=== PATIENT | male | born 1975 | race Hispanic/Latino ===

== ENCOUNTER 2017-01-01 19:11 | Inpatient (IN) | payer MEDICAID, OTHER ==
[2017-01-01 19:11] VITALS: BMI 24.4
[2017-01-01 20:10] LABS: RBC URINE < 1 /hpf (0-3); URINE BILIRUBIN NEGATIVE (NEGATIVE); URINE BLOOD NEGATIVE (NEGATIVE); URINE COLOR Yellow (YELLOW); URINE GLUCOSE (UA) NORMAL (Normal); URINE KETONE TRACE mg/dL (NEGATIVE); URINE LEUKOCYTE ESTERASE NEG Leu/uL (Negative); URINE PROTEIN NEGATIVE (NEGATIVE); WBC URINE 1 /hpf (0-5)
[2017-01-01 20:13] LABS: BASO % 0.3 % (0.0-2.0); EOS # 0.1 K/uL (0.0-0.7); HEMATOCRIT 44.7 % (35.0-51.0); LYMPH # 1.6 K/uL (1.0-4.3); LYMPH % 14.6 % (20.0-40.0); MEAN CELL VOLUME 86.1 fL (80.0-94.0); MEAN CORPUSCULAR HGB CONC 33.7 g/dL (33.0-37.0); MEAN PLATELET VOLUME 8.4 fL (7.2-11.7); MONO # 0.8 K/uL (0.0-0.8); MONO % 7.4 % (0.0-10.0); RED CELL DISTRIBUTION WIDTH 12.7 % (11.5-14.5); WHITE BLOOD COUNT 11.1 K/uL (4.8-10.8)
[2017-01-01 20:19] LABS: ALB/GLOB RATIO 1.1 (1.0-2.1); ALCOHOL SERUM < 10 mg/dl (0-10); ALKALINE PHOSPHATASE 59 U/L (38-126); ALT/SGPT 47 U/L (21-72); AST/SGOT 44 U/L (17-59); BILIRUBIN,TOTAL 0.7 mg/dL (0.2-1.3); BLOOD UREA NITROGEN 13 mg/dL (9-20); CALCIUM 9.6 mg/dl (8.6-10.4); CARBON DIOXIDE 29 mmol/L (22-30); CHLORIDE 102 mmol/L (98-107); GFR AFRICAN-AMERICAN > 60; GLUCOSE,RANDOM 95 mg/dL (75-110); POTASSIUM 4.8 mmol/L (3.6-5.2); SODIUM 143 mmol/L (132-148); TOTAL PROTEIN 7.6 g/dL (6.3-8.3)
--- NOTE | 2017-01-01 20:38 | C.PDOC ---
History Of Present Illness 41 yo male presents to the ED with complaints of hearing voices urging him to commit suicide. Patient reports feeling depressed and has plan to slice wrists. He denies any physical complaints. Time Seen by Provider: 01/01/17 19:27 Chief Complaint (Nursing): Psychiatric Evaluation History Per: Patient History/Exam Limitations: no limitations Onset/Duration Of Symptoms: Days Current Symptoms Are (Timing): Still Present Suicide/Self Injury Attempted (Context): None Modifying Factor(s): Narcotics, Cocaine Severity: Moderate Associated Symptoms: Depression, Other (plans on cutting wrists. 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 Cardiovascular: Negative for: Chest Pain, Palpitations Respiratory: Negative for: Cough, Shortness of Breath Gastrointestinal: Negative for: Nausea, Vomiting, Abdominal Pain, Diarrhea Psych: Positive for: Depression, Suicidal ideation Physical Exam - Physical Exam Appears: Well, Non-toxic, Other (Flat affect, Comfortable, Awake, Alert) Skin: Normal Color, Warm, Dry Head: Atraumatic, Normacephalic Eye(s): bilateral: Normal Inspection Oral Mucosa: Moist Cardiovascular: Rhythm Regular Respiratory: Normal Breath Sounds, No Rales, No Rhonchi, No Wheezing Gastrointestinal/Abdominal: Normal Exam, Bowel Sounds, Soft, No Tenderness Extremity: Normal ROM Extremity: Bilateral: Atraumatic, Normal Color And Temperature, Normal ROM Neurological/Psych: Oriented x3 ED Course And Treatment - Laboratory Results Result Diagrams: 01/01/17 20:04 01/01/17 20:04 O2 Sat by Pulse Oximetry: 98 (Room Air) Pulse Ox Interpretation: Normal Progress Note: Blood work, UA, UDS ordered and reviewe. Patient to be seen by crisis counselor. 9:10pm- Patient medically cleared. Accepted for psychiatric admission by Dr. Brennan. Disposition - Disposition Disposition: HOSPITALIZED Disposition Time: 21:18 Condition: STABLE - Clinical Impression Clinical Impression: Bipolar disorder, Depression - Scribe Statement The provider has reviewed the documentation as recorded by the Scribe Maria A Clement All medical record entries made by the Scribe were at my direction and personally dictated by me. I have reviewed the chart and agree that the record accurately reflects my personal performance of the history, physical exam, medical decision making, and the department course for this patient. I have also personally directed, reviewed, and agree with the discharge instructions and disposition. Decision To Admit - Pt Status Changed To: Hospital Disposition Of: Inpatient - Admit Certification Admit to Inpatient:: After my assessment, the patient will require hospitalization for at least two midnights. This is because of the severity of symptoms shown, intensity of services needed, and/or the medical risk in this patient being treated as an outpatient. - InPatient: Physician Admission Certification: I certify that this patient requires 2 or more midnights of care for the following reason:: see notes - . Bed Request Type: Psychiatry Admitting Physician: Oliva Brennan Patient Diagnosis: Bipolar disorder
[2017-01-01 21:39] VITALS: O2SAT 98
--- NOTE | 2017-01-01 21:58 | PCM.BM ---
<Marianne Clinton - Last Filed: 01/01/17 21:55> Treatment Plan Problems - Problems identified on initial assessmt Depression Date Initiated: 01/01/17 Time Initiated: 21:56 Assessment reference: NA Status: Active Substance Abuse Date Initiated: 01/01/17 Time Initiated: 21:56 Assessment reference: NA Status: Active Treatment assets and liabiliti Patient Assests: adapts well, cooperative, ADL independent, physically healthy, negotiates basic needs, cognitively intact Patient Liabilities: live alone (Homeless), financial problems (Unemployed), poor support system, substance abuse (Opiates, Cocaine) - Milieu Protocol Maintain good personal hygiene: daily Encourage regular showers, daily Remind patient to perform daily oral care, other Assist patient to perform ADL's (Self) Conduct patient checks and document Observation sheet: Q15 minutes (Safety) Maintain personal safety: every shift Educate patient to report safety concerns to staff, every shift Monitor environment for contraband/sharps Medication safety: Monitor for expected outcome, potential side effects: every shift, Assess barriers to learning: every shift, Assess readiness for medication education: every shift <Kanika Portillo - Last Filed: 01/04/17 09:48> Family Contact Family involvement: Famliy/SO not involved - Goals for Treatment Patient goals for treatment: "I want rehab." Discharge/Continuing Care - Education Needs Education Needs: Patient Medication, Patient Community resources - Discharge Discharge Criteria: Tolerates medication w/o severe side effects, No longer exhibiting s/s of withdrawal Discharge to:: Nursing Home - Treatment Team Participation Discussed with Family/SO: No Was Patient/Family/SO present at Treatment Team Meeting: Ashley
[2017-01-02] MEDS: buPROPion SR 150 MG TABLET PO SCH (17:25)
--- NOTE | 2017-01-03 00:34 | PCM.PSYCH ---
Initial Psychiatric Evaluation - Initial Psychiatric Evaluation Legal Status: Capacity Chief Complaint (in patient's own words): I WANTED TO KILL MYSELF Patient's Reaction to Hospitalization: I FEEL SAFE HERE Current Medications: Active Medications Generic Name Dose Route Start Last Admin Trade Name Freq PRN Reason Stop Dose Admin Bupropion HCl 150 mg 01/02/17 18:00 01/02/17 17:25 Wellbutrin Sr 150 Mg PO 150 mg BID JESSIKA Administration Chlordiazepoxide 25 mg 01/02/17 12:54 01/02/17 13:09 Librium PO 25 mg Q4H PRN Administration Alcohol Withdrawal Chlordiazepoxide 25 mg 01/02/17 18:00 01/02/17 17:24 Librium PO 01/06/17 17:59 25 mg Q6 JESSIKA Administration Taper Chlorpromazine 100 mg 01/02/17 13:00 01/02/17 18:09 Thorazine PO 100 mg BID JESSIKA Administration Dicyclomine HCl 10 mg 01/01/17 21:56 Bentyl PO Q6 PRN stomach pain Diphenhydramine HCl 50 mg 01/01/17 21:55 01/02/17 20:38 Benadryl PO 50 mg HS PRN Administration Insomnia Ibuprofen 600 mg 01/01/17 21:56 01/02/17 20:37 Motrin Tab PO 600 mg Q6 PRN Administration Pain, moderate (4-7) [place] Carbonate 600 mg 01/02/17 18:00 01/02/17 17:24 [place] Carbonate 300mg PO 600 mg BID JESSIKA Administration Methadone HCl 15 mg 01/03/17 09:30 Methadone PO 01/03/17 09:31 ONCE ONE Methadone HCl 10 mg 01/04/17 09:30 Methadone PO 01/04/17 09:31 ONCE ONE Nicotine 1 patch 01/02/17 12:15 01/02/17 12:19 Nicoderm Cq TD 1 patch DAILY JESSIKA Administration Oxcarbazepine 300 mg 01/02/17 18:00 01/02/17 17:25 Trileptal PO 300 mg BID JESSIKA Administration Pneumococcal Polyvalent Vaccine 0.5 ml 01/04/17 10:00 Pneumovax 23 Vaccine IM 01/04/17 10:01 .ONCE ONE Past Psychiatric History - Past Psychiatric History Pertinent Medical Hx (Current Medical&Sleep Prob, Allergies): Allergies Allergy/AdvReac Type Severity Reaction Status Date / Time No Known Allergies Allergy Verified 01/01/17 19:18 No Known Home Med 01/20/16
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
[2017-01-03] MEDS: buPROPion SR 150 MG TABLET PO SCH (09:29)
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
[2017-01-03] MEDS ORDERED: buPROPion SR 150 MG TABLET PO SCH (18:00)
[2017-01-03] MEDS ORDERED: Oxymetazoline 0.05% Nasal Spray (30 ml) NS PRN (19:03)
[2017-01-04 07:45] VITALS: BP 109/68; PULSE 75; RESP 18; TEMP 97.4
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
[2017-01-04] MEDS ORDERED: Pneumococcal 23-Valent Vaccine IM ONE (10:00)
== END 2017-01-04 09:50 | disposition home or self-care (01) | DRG 430 ==
LOC: C.ER 19:11 → SUPCPDRO 19:11 → C.5E 21:18
PROVIDERS: ADMIT Psychiatry & Neurology Psychiatry; ATTEND Psychiatry & Neurology Psychiatry
PROC: GZHZZZZ Group Psychotherapy (ICD-10-PCS; principal; 2017-01-01)
PROC: GZ56ZZZ Individual Psychotherapy, Supportive (ICD-10-PCS; 2017-01-01)
PROC: HZ52ZZZ Individual Psychotherapy for Substance Abuse Treatment, Cognitive-Behavioral (ICD-10-PCS; 2017-01-01)
PROC: HZ59ZZZ Individual Psychotherapy for Substance Abuse Treatment, Supportive (ICD-10-PCS; 2017-01-01)
PROC: HZ81ZZZ Medication Management for Substance Abuse Treatment, Methadone Maintenance (ICD-10-PCS; 2017-01-01)
PROC: HZ2ZZZZ Detoxification Services for Substance Abuse Treatment (ICD-10-PCS; 2017-01-01)
DX: F31.9 Bipolar disorder, unspecified (principal); F10.239 Alcohol dependence with withdrawal, unspecified; F11.23 Opioid dependence with withdrawal; F13.239 Sedative, hypnotic or anxiolytic dependence with withdrawal, unspecified; F60.81 Narcissistic personality disorder